=== PATIENT | male | born 1965 ===

== ENCOUNTER 2021-01-17 06:35 | Day surgery (SDC) | payer OTHER ==
[~2021-01-17 06:35] MED LIST: CATAFLAN; METHOTREXATE2.5 MG PO; PLAQUENIL
== END 2021-01-17 17:00 | disposition home or self-care (01) ==
LOC: CIR.AMB 06:35
PROVIDERS: ATTEND Orthopaedic Surgery Hand Surgery
DX: M06.321 Rheumatoid nodule, right elbow (principal); Z20.822 Contact with and (suspected) exposure to COVID-19